=== PATIENT | female | born 1995 | race Caucasian/White ===

== ENCOUNTER 2021-09-21 13:33 | Outpatient (CLI) | payer MEDICAID, SELFPAY | END 2021-09-21 13:34 | disposition home or self-care (01) | LOC: LKVREF 13:35 | PROVIDERS: Visit Provider Physician Assistant Medical | DX: A69.23 Arthritis due to Lyme disease (principal); B97.89 Other viral agents as the cause of diseases classified elsewhere | CPT/HCPCS: 86618 ==

== ENCOUNTER 2021-10-13 17:24 | Emergency (ER) | payer MEDICAID, SELFPAY ==
[2021-10-13 17:48] VITALS: BP 102/69; PULSE 82; RESP 16; TEMP 37.5; O2SAT 100; BMI 31.5
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
[2021-10-13] MEDS: 0.9 % SODIUM CHLORIDE 1000 ml 1,000 ML IV (18:25)
[2021-10-13 18:30] VITALS: BP 95/64; PULSE 59; RESP 18; O2SAT 99
--- NOTE | 2021-10-13 18:33 | ED.NURSE ---
Pt refusing COVID swab. aware and okay with cancelling order.
[2021-10-13] MEDS: FAMOTIDINE 20 MG TABLET PO (18:37)
[2021-10-13] MEDS: ACETAMINOPHEN 500 MG TABLET 1000 MG PO (18:37)
[2021-10-13 18:38] LABS: Basophils Absolute Auto 0.01 K/uL (0.00-0.30); Basophils Percent Auto 0.2 % (0.0-3.0); Eosinophils Absolute Auto 0.07 K/uL (0.00-0.50); Eosinophils Percent Auto 1.4 % (0.0-7.0); Hematocrit 34.2 % (33.0-51.0); Hemoglobin* 11.9 gm/dL (12.0-16.0); Lymphocytes Percent Auto 37.5 % (20-44); Mean Corpuscular HGB Conc 35 gm/dL (32-36); Mean Corpuscular Hemoglobin 30 pg (26-34); Mean Corpuscular Volume 86 fL (80-100); Monocytes Percent Auto 7.9 % (0.0-11.0); Neutrophils Absolute Auto 2.68 K/uL (1.7-7.0); Platelet Count* 237 K/uL (140-440); RDW Coefficient of Variation % 12.3 % (11.5-15.5); Red Blood Count 3.98 m/uL (4.00-5.20); White Blood Count* 5.06 K/uL (4.50-11.00)
[2021-10-13 18:50] LABS: Slide Review Reflex No
[2021-10-13 18:52] LABS: Albumin* 4.2 g/dL (3.3-5.0); Chloride* 106 mmol/L (96-114)
[2021-10-13 18:53] LABS: Potassium* 3.7 mmol/L (3.6-5.1); Sodium* 137 mmol/L (135-149)
[2021-10-13 18:55] LABS: Alkaline Phosphatase* 47 U/L (40-150); Aspartate Amino Transferase* 15 U/L (12-35); Bilirubin Total* 0.1 mg/dL (0.1-1.5); Carbon Dioxide* 25 mmol/L (20-32); Creatinine* 0.6 mg/dL (0.5-1.5); Est. Creatinine Clearance* 135.35; Estimated Glomerular Filt Rate 128 ml/min; Total Protein* 7.4 g/dL (6.0-8.3)
[2021-10-13 18:56] LABS: Alanine Aminotransferase* 13 U/L (4-35); Blood Urea Nitrogen* 10 mg/dL (5-24); Calcium* 8.9 mg/dL (8.4-10.6); Glucose* 89 mg/dL (60-115); Lipase* 88 U/L (23-300)
[2021-10-13 18:58] LABS: C Reactive Protein* 1.1 mg/dL (0.5-1.0)
[2021-10-13 19:00] VITALS: BP 97/54; PULSE 62; RESP 18; O2SAT 100
--- NOTE | 2021-10-13 19:14 | ED.NURSE ---
Pt now okay with COVID swab. Swabbed and sent to lab.
[2021-10-13 19:30] VITALS: BP 100/64; PULSE 57; RESP 18; O2SAT 100
[2021-10-13 20:00] VITALS: BP 100/64; PULSE 61; RESP 18; O2SAT 99
[2021-10-13 20:07] LABS: SARS PCR* Negative SARS-CoV-2 (Negative)
== END 2021-10-13 20:10 | disposition home or self-care (01) ==
PROVIDERS: Emergency Provider Student in an Organized Health Care Education/Training Program
DX: R53.1 Weakness (principal); Z3A.01 Less than 8 weeks gestation of pregnancy
CPT/HCPCS: 36415; 80053; 83690; 85025; 86140; 87635; 99283; A9270; J7030

== ENCOUNTER 2021-10-20 13:53 | Outpatient (CLI) | payer MEDICAID, SELFPAY ==
--- NOTE | 2021-10-20 14:00 | CRLHL7_ITS ---
For Patients: As a result of the Century Cures Act, medical imaging exams and procedure reports are released immediately into your electronic medical record. You may view this report before your referring provider. If you have questions, please contact your health care provider. INDICATION: First trimester scan, establish dates. COMPARISON: 09/26/2021 TECHNIQUE: Real-time snell-scale imaging of the pelvis was performed. FINDINGS: Sonographic imaging demonstrates a single living intrauterine gestation. The embryo demonstrates a regular cardiac rate measuring 176 beats per minute. The embryo`s crown-rump length measurement of 1.8 cm corresponds to a gestational age of 8 weeks 2 days with a sonographic due date of 05/30/2022. There is a normal-appearing yolk sac. There are no gross abnormalities noted within the embryo at this early state of development. The gestational sac has a normal appearance. There is no evidence of a perigestational hemorrhage. The amount of fluid within the sac appears appropriate for gestational age. The cervix is closed. The myometrium appears normal. The ovaries are of normal size. A simple left paraovarian cyst is present measuring 2.3 x 1.6 x 2.9 cm. There are no suspicious fluid collections noted in the cul-de-sac. IMPRESSION: Single living intrauterine with sonographic gestational age 8 weeks 2 days and sonographic due date 05/30/2022. Dictated by Low Dos Santos MD @ 10/20/2021 3:05:23 PM (Electronically Signed)
== END 2021-10-20 13:54 | disposition home or self-care (01) ==
LOC: US 13:54
PROVIDERS: Visit Provider Advanced Practice Midwife
DX: Z34.91 Encounter for supervision of normal pregnancy, unspecified, first trimester (principal); Z3A.08 8 weeks gestation of pregnancy
CPT/HCPCS: 76817

== ENCOUNTER 2021-11-23 13:47 | Outpatient (CLI) | payer MEDICAID, SELFPAY ==
--- NOTE | 2021-11-23 14:00 | CRLHL7_ITS ---
For Patients: As a result of the Century Cures Act, medical imaging exams and procedure reports are released immediately into your electronic medical record. You may view this report before your referring provider. If you have questions, please contact your health care provider. INDICATION: Right calf pain. . COMPARISON: None available. FINDINGS: Ultrasound of the venous drainage of the right lower extremity shows no evidence of deep venous thrombosis. There is normal antegrade flow from the posterior tibial and popliteal veins superiorly through the common femoral vein. There is normal augmentation and compressibility of these veins. The left common femoral vein is widely patent. IMPRESSION: No evidence of deep venous thrombosis on ultrasound examination of the right lower extremity. Dictated by Jordan Snyder MD @ 11/23/2021 2:46:03 PM (Electronically Signed)
== END 2021-11-23 13:48 | disposition home or self-care (01) ==
LOC: US 13:47
PROVIDERS: Visit Provider Physician Assistant
DX: O26.899 Other specified pregnancy related conditions, unspecified trimester (principal); M79.604 Pain in right leg
CPT/HCPCS: 93971

== ENCOUNTER 2021-12-09 11:34 | Emergency (ER) | payer MEDICAID, SELFPAY ==
[2021-12-09 11:42] VITALS: BP 111/67; PULSE 78; RESP 20; TEMP 36.7; O2SAT 99; BMI 31.5
[2021-12-09 12:17] LABS: Basophils Absolute Auto 0.01 K/uL (0.00-0.30); Basophils Percent Auto 0.2 % (0.0-3.0); Eosinophils Absolute Auto 0.03 K/uL (0.00-0.50); Eosinophils Percent Auto 0.5 % (0.0-7.0); Hematocrit 32.8 % (33.0-51.0); Hemoglobin* 11.1 gm/dL (12.0-16.0); Immature Granulocytes Abs Auto 0.01 K/uL (0.00-0.30); Lymphocytes Absolute Auto 1.66 K/uL (0.90-2.90); Lymphocytes Percent Auto 29.2 % (20-44); Mean Corpuscular HGB Conc 34 gm/dL (32-36); Mean Corpuscular Hemoglobin 30 pg (26-34); Mean Corpuscular Volume 89 fL (80-100); Neutrophils Absolute Auto 3.75 K/uL (1.7-7.0); Neutrophils Percent Auto 65.9 % (42.0-72.0); Platelet Count* 196 K/uL (140-440); RDW Coefficient of Variation % 13.1 % (11.5-15.5); Red Blood Count 3.68 m/uL (4.00-5.20); White Blood Count* 5.69 K/uL (4.50-11.00)
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
[2021-12-09 12:20] LABS: Slide Review Reflex No
[2021-12-09 12:32] LABS: Albumin* 3.7 g/dL (3.3-5.0); Chloride* 106 mmol/L (96-114)
[2021-12-09 12:33] LABS: Potassium* 3.6 mmol/L (3.6-5.1); Sodium* 136 mmol/L (135-149)
[2021-12-09 12:35] LABS: Carbon Dioxide* 23 mmol/L (20-32); Creatinine* 0.5 mg/dL (0.5-1.5); Est. Creatinine Clearance* 161.02; Estimated Glomerular Filt Rate 133 ml/min
[2021-12-09 12:36] LABS: Appearance Urine Clear (Clear); Bilirubin Urine Negative (Negative); Blood Urine Negative (Negative); Color Urine Yellow (Yellow); Glucose Urine Negative (Negative); Ketones Urine Negative (Negative); Leukocyte Esterase Urine Negative (Negative); Nitrite Urine Negative (Negative); Protein Urine Negative (Negative); Specific Gravity Urine 1.015 (1.000-1.030); Urobilinogen Urine 0.2 (0.2-1.0); pH Urine 8.5 (5.0-8.5)
[2021-12-09 12:36] LABS: Alanine Aminotransferase* 11 U/L (4-35); Alkaline Phosphatase* 49 U/L (40-150); Aspartate Amino Transferase* 16 U/L (12-35); Bilirubin Total* 0.3 mg/dL (0.1-1.5); Blood Urea Nitrogen* 5 mg/dL (5-24); Calcium* 8.5 mg/dL (8.4-10.6); Glucose* 102 mg/dL (60-115); Lipase* 50 U/L (23-300); Total Protein* 6.6 g/dL (6.0-8.3)
[2021-12-09 12:44] LABS: Trichomonas No Trichomonas Seen (None Seen); Yeast No Yeast Seen (None Seen)
[2021-12-09 12:45] LABS: Clue Cells No Clue Cells Seen (None Seen)
[2021-12-09 12:54] LABS: RBC Urine 0-2 (0-2); Squamous Epithelial Cell Urine Few (None-Few); WBC Urine 0-2 (0-5)
[2021-12-09] MEDS: METOCLOPRAMIDE 10 MG TABLET PO (12:54)
[2021-12-09] MEDS: ACETAMINOPHEN 500 MG TABLET 1000 MG PO (12:54)
[2021-12-09 13:00] VITALS: BP 103/61; PULSE 79; RESP 16; O2SAT 98
[2021-12-09 13:07] LABS: SARS PCR* Negative SARS-CoV-2 (Negative)
== END 2021-12-09 13:30 | disposition home or self-care (01) ==
PROVIDERS: Emergency Provider Family Medicine
DX: B34.9 Viral infection, unspecified (principal); Z3A.15 15 weeks gestation of pregnancy; R10.9 Unspecified abdominal pain
CPT/HCPCS: 36415; 80053; 81001; 83690; 85025; 87210; 87635; 93005; 99283; 99284; A9270

== ENCOUNTER 2021-12-27 23:35 | Emergency (ER) | payer MEDICAID, SELFPAY ==
[2021-12-27 23:49] VITALS: BP 122/79; PULSE 78; RESP 18; TEMP 36.7; O2SAT 97; BMI 31.5
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
--- NOTE | 2021-12-28 00:58 | PC.NURSE ---
Nurse was called down to see patient after concerns of possible miscarriage/ placenta abruption. Patient states that her older child jumped onto her abdomen early yesterday morning. After that, she heard a pop in her left lower abdomen, and she began leaking clear almost chemical smelling fluid. She has had pain in her left lower abdomen, uterine cramping, and low back pain that extends to her tailbone all day. She mentioned she has concerns that her placenta is tearing away. Nurse inquired more about history. 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 She has been sitting in the passenger seat and reaching back to tend to her older child in the back seat. She stated that she was also super gassy yesterday when nurse inquired about last bowel movement. She did have a bowel movement early yesterday. She did have intercourse the night before, too. Nurse assessed FHR to be in the 150's via doppler. Nurse educated that patient's symptoms could be related these recent events. However, nurse recommended patient to make an OB appointment to be evaluated for further OB complications.
[2021-12-28 01:17] LABS: Appearance Urine Clear (Clear); Bilirubin Urine Negative (Negative); Blood Urine Trace-intact (Negative); Color Urine Yellow (Yellow); Glucose Urine Negative (Negative); Ketones Urine Negative (Negative); Leukocyte Esterase Urine Negative (Negative); Nitrite Urine Negative (Negative); Protein Urine Negative (Negative); Specific Gravity Urine 1.025 (1.000-1.030); Urobilinogen Urine 0.2 (0.2-1.0)
[2021-12-28 01:34] LABS: Bacteria Urine Few; Squamous Epithelial Cell Urine Moderate (None-Few); WBC Urine 0-2 (0-5)
[2021-12-28 01:50] VITALS: BP 119/78; PULSE 79; RESP 18; TEMP 36.7; O2SAT 97
[2021-12-28 01:52] VITALS: BP 119/78; PULSE 79; RESP 18; TEMP 36.7
== END 2021-12-28 01:52 | disposition home or self-care (01) ==
PROVIDERS: Emergency Provider Family Medicine
DX: O26.892 Other specified pregnancy related conditions, second trimester (principal); Z3A.17 17 weeks gestation of pregnancy
CPT/HCPCS: 81001; 87086; 99283

== ENCOUNTER 2022-01-15 12:41 | Outpatient (CLI) | payer MEDICAID, SELFPAY ==
--- NOTE | 2022-01-15 13:00 | CRLHL7_ITS ---
For Patients: As a result of the Century Cures Act, medical imaging exams and procedure reports are released immediately into your electronic medical record. You may view this report before your referring provider. If you have questions, please contact your health care provider. INDICATION: Evaluate anatomy. COMPARISON: 10/20/2021 TECHNIQUE: Real time snell scale imaging of the fetus was performed as well as color Doppler analysis of the umbilical vessels. FINDINGS: Sonographic imaging demonstrates a single living intrauterine gestation. Fetus demonstrates a regular cardiac rate of 139 beats per minute. Fetus has a breech position. The placenta lies posteriorly without evidence of placenta previa. The edge of the placenta is located 3.6 cm from the internal cervical os. Amniotic fluid volume appears normal. Single deepest vertical pocket: 4.4 cm. The cervix is closed and measures 5.0 cm in length. The composite ultrasound gestational age is calculated at 20 weeks 4 days with an estimated sonographic due date of 05/31/2022. The estimated weight is 378 grams which lies at the 34th %. The following biometric measurements were obtained: Biparietal diameter: 4.8 cm/20 weeks 3 days 26th% Head circumference: 18.0 cm/20 weeks 3 days 19th% Abdominal circumference: 16.4 cm/21 weeks 3 day 59th% Femur length: 3.2 cm/20 weeks 1 day 14th% The HC/AC ratio measures: 1.10 range (1.07-1.25) On anatomic survey, there is a normal appearance of the cerebral ventricles, cavum septi pellucidi, cisterna magna and cerebellum. The nose, lips, and facial profile appear normal. The cervical, thoracic and lumbar spine are well visualized and appear normal. There is a normal four-chamber heart view and the left and right ventricular outflow tracts appear normal. The diaphragm and stomach appear normal. The kidneys and bladder also appear normal. There is a normal three-vessel cord and there is an eccentric cord insertion site. The four extremities appear normal. IMPRESSION: Normal OB ultrasound exam with concordance of clinical and sonographic dating. No intrinsic abnormalities noted on anatomic survey. Dictated by Low Dos Santos MD @ 01/16/2022 9:37:09 AM (Electronically Signed)
== END 2022-01-15 12:42 | disposition home or self-care (01) ==
LOC: US 12:42
PROVIDERS: Visit Provider Advanced Practice Midwife
DX: Z34.92 Encounter for supervision of normal pregnancy, unspecified, second trimester (principal); Z3A.20 20 weeks gestation of pregnancy
CPT/HCPCS: 76805

== ENCOUNTER 2022-05-07 16:25 | Outpatient (CLI) | payer BC, MEDICAID, SELFPAY ==
[2022-05-08 12:39] LABS: Strep B DNA Probe NEGATIVE (Negative)
[2022-05-08 13:06] LABS: Strep B Pen/Amox Allergy No
== END 2022-05-07 16:26 | disposition home or self-care (01) ==
LOC: NFLDREF 16:25
PROVIDERS: Visit Provider Advanced Practice Midwife
DX: Z34.93 Encounter for supervision of normal pregnancy, unspecified, third trimester (principal); Z3A.36 36 weeks gestation of pregnancy
CPT/HCPCS: 87081; 87653

== ENCOUNTER 2022-05-25 02:22 | Inpatient (IN) | payer BC, MEDICAID, SELFPAY ==
[2022-05-25] VITALS (35 sets, daily range): BP systolic 106–133; BP diastolic 58–82; PULSE 56–83; RESP 16; TEMP 36.4–36.6; O2SAT 96–100; BMI 38.7
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
[2022-05-25 03:34] LABS: SARS PCR* Negative SARS-CoV-2 (Negative)
--- NOTE | 2022-05-25 09:01 | P.OBPN_ITS ---
Subjective Date Seen: 05/25/22 Narrative: Lucy is a 26 yo at 38 6/7 weeks gestation per our LMP, patient reports her CHIARA is 06/01/21, putting her at 39 0/7 weeks gestation. [place] was admitted this morning after making cervical change in triage, she has since stalled at 4.5 cm. Contractions have spaced out and are irregular. Patient has been having contractions on and off since earlier this week. She was evaluated in [place] the discharge home after minimal change in triage. After some monitoring here, she had a prolonged deceleration and has had some late decelerations following contractions. heart rate has since been overall reassuring. Patient is fatigued as she she has not had much sleep in the last few days. Objective Exam: Constitutional: Alert and oriented x3, mild distress, coping well? Vital signs stable, see nurse documentation?? Abdomen: gravid, contractions palpate mild with contractions and soft between? 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 Plan Plan: ASSESSMENT:? 26 at 39 0/7 weeks gestation? complicated by:? Labor type: Spontaneous, early labor? Category 1 FHR pattern.?Intermittent Cat II Labor complicated by: prodromal labor and Cat II tracing intermittently? GBS negative? ? PLAN:? 1. Routine intrapartum cares as ordered. Recommended Augmentation due to FHR tracing. She is agreeable. She would like to try to rest some and do some position changes to assist with engagement of fetus. Discussed AROM vs Pitocin. Last report, fetus was ballotable. I would not recommend AROM if this is still the case. She reports understanding. 2. Monitoring per policy, continuous due to FHR changes. Could consider intermittent with reassuring tracing during labor.? 3. Planning unmedicated . Desires water . Consent signed. Hep C negative. Candidate for analgesia of choice.?? 4. Patient encouraged to reposition and ambulate to promote physiologic labor and .? 5. Anticipate ?
[2022-05-25] MEDS: LACTATED RINGERS 1000 ML 1,000 ML 125 ML IV ×2 (09:04→17:16)
[2022-05-25 09:31] LABS: Basophils Absolute Auto 0.02 K/uL (0.00-0.30); Basophils Percent Auto 0.3 % (0.0-3.0); Eosinophils Absolute Auto 0.09 K/uL (0.00-0.50); Eosinophils Percent Auto 1.2 % (0.0-7.0); Hematocrit 35.6 % (33.0-51.0); Hemoglobin* 11.6 gm/dL (12.0-16.0); Immature Granulocytes Abs Auto 0.06 K/uL (0.00-0.30); Immature Granulocytes Pct Auto 0.8 %; Lymphocytes Percent Auto 35.8 % (20-44); Mean Corpuscular HGB Conc 33 gm/dL (32-36); Mean Corpuscular Hemoglobin 28 pg (26-34); Mean Corpuscular Volume 87 fL (80-100); Monocytes Percent Auto 4.9 % (0.0-11.0); Neutrophils Absolute Auto 4.47 K/uL (1.7-7.0); Platelet Count* 216 K/uL (140-440); RDW Coefficient of Variation % 13.8 % (11.5-15.5); Red Blood Count 4.11 m/uL (4.00-5.20); White Blood Count* 7.82 K/uL (4.50-11.00)
[2022-05-25 09:32] LABS: Slide Review Reflex No
[2022-05-25] MEDS: SERTRALINE 50 MG TABLET PO (13:52)
[2022-05-25] MEDS: OXYTOCIN 30 unit/500 ML in NS 30 UNIT/500 ML BAG IVPB (14:34)
--- NOTE | 2022-05-25 19:41 | W.PM.OBVAGDE ---
OB Procedure Vag Delivery Mother Details Mother Details: The patient is a 26 year-old, 3, Para 1, admitted on 05/25/22 at 39.0 weeks gestation for labor. : 3 Para: 2 Weeks Gestation: 39 Admission Date: 05/25/22 Additional Details Amniotic Membrane Status: SROM Amniotic Membrane Rupture Date: 05/25/22 Amniotic Membrane Rupture Time: 18:15 Amniotic Membrane Fluid Description: Meconium Stained Analgesia/Anesthesia Type: None Waterbirth: Yes Pitcoin: Yes Intrapartal Events: Labor Augmentation Delivery augmentation: pitocin Labor Onset: 17:30 Complete: 18:40 Pushin:40 Heart: heart tones during second stage had wandering baseline ranging 130-150's, + Accels, +variable decels with moderate variability. Very difficult to trace due to maternal positioning and discomfort. Delivery Details Delivery Date: 05/25/22 Delivery Time: 19:49 Route of delivery: Gender: Female Infant Viability: Alive; Heart Rate Present Position at Delivery: OA Delivery Details: Delivered over intact perineum via spontaneous vaginal delivery, waterbirth. Infant was placed on maternal abdomen.? Cord was clamped and cut after a 1-2 minute delay. Brought to the warmer for further evaluation.? weight pending. 1 Minute Interval Total Score: 8 5 Minute Interval Total Score: 8 Additional Details Shoulder Dystocia: No Placenta Delivery Time: 18:58 Placental Delivery Description: Spontaneous Procedure Done: Global Blood Loss: 50 Laceration: None Blood Loss Measurement Type: QBL Bakri Used: No Sponge/Need Count Correct: Yes Cord Vessel Description: 3 Vessels Event Summary Status: Mother and were stable after delivery.
[2022-05-26 01:44] VITALS: BP 122/79; PULSE 52; RESP 16; TEMP 36.6; O2SAT 97
[2022-05-26 05:45] VITALS: BP 117/81; PULSE 68; RESP 16; TEMP 36.6; O2SAT 96
[2022-05-26] MEDS: ACETAMINOPHEN 500 MG TABLET 1000 MG PO ×2 (05:57→16:35)
--- NOTE | 2022-05-26 09:13 | PM.OBPNVD1 ---
OB - PN: Obj Exam Physical Exam: Vital signs: Temp Pulse Resp BP Pulse Ox O2 Del Method 97.9 F 68 16 117/81 96 05/26/22 05:45 05/26/22 05:45 05/26/22 05:45 05/26/22 05:45 05/26/22 05:45 05/26/22 05:45 OB - PN: Obj Data Labs Labs: Laboratory Results - last 24 hr 05/25/22 05/25/22 09:20 09:20 WBC 7.82 RBC 4.11 Hgb 11.6 L Hct 35.6 MCV 87 MCH 28 MCHC 33 RDW Coeff of [place] 13.8 Plt Count 216 Neut % (Auto) 57.0 Lymph % (Auto) 35.8 [place] % (Auto) 4.9 Eos % (Auto) 1.2 Baso % (Auto) 0.3 Neut # (Auto) 4.47 Lymph # (Auto) 2.80 [place] # (Auto) 0.40 Eos # (Auto) 0.09 Baso # (Auto) 0.02 Blood Type O Positive Antibody Screen NEGATIVE OB - PN: A/P Vaginal Delivery Assessment and Plan (1) Uterine contractions: Status: Acute (2) Depression with anxiety: Problem details: Previously took fetzima and vyvanse and did therapy Status: Acute
[2022-05-26 09:18] VITALS: BP 125/85; PULSE 60; RESP 16; TEMP 36.4; O2SAT 98
[2022-05-26] MEDS: IBUPROFEN 600 MG TABLET PO ×2 (09:27→18:18)
[2022-05-26] MEDS: DOCUSATE SODIUM 100 MG CAPSULE PO (09:27)
[2022-05-26 13:23] VITALS: BP 111/70; PULSE 85; RESP 16; TEMP 36.8; O2SAT 96
[2022-05-26] MEDS: SERTRALINE 50 MG TABLET PO (13:27)
--- NOTE | 2022-05-26 16:23 | PM.OBDSVD1 ---
DS: Providers Provider Date Seen: 05/26/22 Date of admission: 05/25/22 02:22 Primary care physician: Not a Local Provider Admitting Clinician: Bernie Cunningham CNM Attending Physician on discharge: Danielle Reed CNM Date of Discharge: 05/26/22 DS: Diagnosis Discharge Diagnosis (1) care and examination immediately after delivery: Status: Acute (2) Lactating mother: Status: Acute Exam Narrative: Exam Narrative: GENERAL APPEARANCE:? normal affect, alert, no distress? MOOD:? appropriate? CHEST:? clear to auscultation and percussion? HEART:? regular rate and rhythm? ABDOMEN:? soft, non-tender the uterine fundus is 1 cm Below Umbilicus, Midline and is appropriate for the stage of recovery. ? PERINEUM:? mild edema of the perineum, there is no tear. EXTREMITIES:? normal and no edema? Patient has no complaints? No active bleeding?? Doing well? She is requesting discharge home.? Const: Vital Signs, click to edit/add: Vital Signs - 24 hr 05/25/22 18:59 05/25/22 19:16 05/25/22 19:31 Temperature Pulse Rate 64 81 58 L Pulse Rate [Pulse Oximeter] Respiratory Rate Blood Pressure 120/76 132/62 129/66 Blood Pressure [Le ft Arm] [facility] 19:47 05/25/22 20:01 05/25/22 20:16 Temperature Pulse Rate 68 83 64 Pulse Rate [Pulse Oximeter] Respiratory Rate Blood Pressure 127/66 114/66 106/58 L Blood Pressure [Le ft Arm] [facility] 20:31 05/25/22 20:46 05/25/22 21:01 Temperature Pulse Rate 70 68 71 Pulse Rate [Pulse Oximeter] Respiratory Rate Blood Pressure 113/68 107/60 109/60 Blood Pressure [Le ft Arm] [facility] 19:00 05/25/22 19:15 05/25/22 19:30 Temperature Pulse Rate Pulse Rate [Pulse Oximeter] Respiratory Rate 16 16 16 Blood Pressure Blood Pressure [Le ft Arm] Pulse [facility]xim[facility] 05[facility] 19:45 05/25/22 20:00 05/25/22 20:15 Temperature 97.6 F Pulse Rate Pulse Rate [Pulse Oximeter] Respiratory Rate 16 16 16 Blood Pressure Blood Pressure [Le ft Arm] Pulse Oximetry Oxygen Delivery Me [facility] 05/25/22 20:30 05/25/22 20:45 05/25/22 21:00 Temperature Pulse Rate Pulse Rate [Pulse Oximeter] Respiratory Rate 16 16 16 Blood Pressure Blood Pressure [Le ft Arm] Pulse Oximetry Oxygen Delivery Me [facility] 05/26/22 01:44 05/26/22 05:45 05/26/22 09:18 Temperature 97.9 F 97.9 F 97.6 F Pulse Rate Pulse Rate [Pulse Oximeter] 52 L 68 60 Respiratory Rate 16 16 16 Blood Pressure Blood Pressure [Le ft Arm] 122/79 117/81 125/85 Pulse Oximetry 97 96 98 Oxygen Delivery Me [facility] Room Air Room Air Room Air 05/26/22 13:23 Temperature 98.3 F Pulse Rate Pulse Rate [Pulse Oximeter] 85 Respiratory Rate 16 Blood Pressure Blood Pressure [Le ft Arm] 111/70 Pulse Oximetry 96 Oxygen Delivery Me thod Room Air Documenting provider has reviewed patient's vital signs: yes OB - DS: Summary Hospital Course Hospital Course: Lucy is a 26 year old G 3 now P 2 at 39.0 weeks gestation that was admitted to the Center on 05/25/22 for induction of labor. She had an uncomplicated vaginal delivery. She delivered a viable female . She is breast feeding. the patient has done well. the patient has done well.? Her pain is well controlled with current medications.? She has no new complaints.? Vitals have been stable. She has remained afebrile. She is voiding without difficulty. She is passing gas and has not yet had a bowel movement. She is ambulating and denies any dizziness. She is planning her partner to get a vasectomy for control.???She is requesting discharge due to the needing transfer for medical care today. Peripartum Data delivery method: Vaginal Laceration description: None complications: none Infant Gender: Female Discharge Plan: transfer to [facility] Status at Discharge Functional status at discharge: independent ambulation Overall status at discharge: patient is progressing back to baseline Time Spent with Patient Time attestation: Total time spent providing and/or coordinating discharge services: Time spent: Less than 30 minutes Discharge Plan Discharge Disposition: Home, Self-Care Date of Admission: 05/25/22 02:22 Attending Provider on Discharge: Danielle Reed Primary Care Provider: Provider,Not a Local Condition: Stable Anticipated Discharge Date/Time: 05/26/22 17:00 Discharge Medications: New docusate sodium 100 mg Capsule 100 mg PO DAILY Qty: 90 0RF Rx Instructions: Take 1-2 tables daily as needed. ibuprofen 600 mg Tablet 600 mg PO Q6H PRNQty: 60 0RF Continued prenat.vits,patti,[id number] Tablet 1 tab PO QDAY sertraline 50 mg tablet 50 mg PO QAM Discharge Orders: Discharge Order (Routine); Ordered 05/26/22 Ordered By: Danielle Reed Additional Instructions: Discharge instructions were reviewed with the patient including signs and symptoms of infection and home going medications.? Lifting Restrictions: 10 pounds for 6? weeks? ?? Do not drive while taking narcotic pain meds.? Off Work or School for 6 weeks.? ?? Symptoms to report to doctor:? -Bleeding that saturates more than one pad per hour? -Passing clots larger than the size of a golf ball? -Pain not relieved by prescribed medication? -Fever above 100.4 degrees Fahrenheit? -A foul vaginal odor? -Difficulty in emotions, mood and functions? -Thoughts of hurting yourself and/or ? -Painful, reddened area in your breast? -Any drainage, redness or tenderness in your IV/epidural site? -Severe headache that doesn't improve after taking medications? -Changes in vision, including temporary loss of vision, blurred vision, and/or light sensitivity? -Upper abdominal pain (usually under ribs on the right side)? -Decrease in urination or painful, frequent urinating? -Chest pain? -Shortness of breath? -Tenderness or pain with redness and/swelling in the calf(s) of your leg? ?? Follow Up in clinic in 2 and 6 weeks.? ?? consultation services are available to all mothers and babies for the first year after delivery.? To make an appointment, please call [phone].? Activity Level: Activity as Tolerated Discharge Diet: Regular Follow Up Appointments: Provider,Not a Local [Primary Care Provider] - [facility] [Provider Group] Forms: MyHealth Info Instructions
[2022-05-26 16:29] VITALS: BP 117/74; PULSE 70; RESP 16; TEMP 36.8; O2SAT 97
== END 2022-05-26 18:45 | disposition home or self-care (01) | DRG 560 ==
LOC: OB OUT 02:22 → OB 02:22
PROVIDERS: Advanced Practice Midwife; Admitting Provider Advanced Practice Midwife; Visit Provider Advanced Practice Midwife
DX: O80 Encounter for full-term uncomplicated delivery (principal); F41.8 Other specified anxiety disorders; Z3A.39 39 weeks gestation of pregnancy; Z37.0 Single live birth; O99.344 Other mental disorders complicating childbirth
CPT/HCPCS: 36415; 85025; 86850; 86900; 86901; 87426; 87635; 99213; A9270; J7120

== ENCOUNTER 2024-04-03 12:35 | Outpatient (CLI) | payer BC, SELFPAY | END 2024-04-03 12:36 | disposition home or self-care (01) | PROVIDERS: PCP Family Medicine; Visit Provider Family Medicine | DX: R20.0 Anesthesia of skin (principal); R20.2 Paresthesia of skin | CPT/HCPCS: 80048; 84443; 85025; 86618 ==

== ENCOUNTER 2024-05-25 14:59 | Outpatient (CLI) | payer BC, SELFPAY | END 2024-05-25 15:00 | disposition home or self-care (01) | LOC: US 15:02 | PROVIDERS: PCP Family Medicine; Visit Provider Advanced Practice Midwife | DX: N92.6 Irregular menstruation, unspecified (principal); T83.32XA Displacement of intrauterine contraceptive device, initial encounter | CPT/HCPCS: 76830; 76856 ==

== ENCOUNTER 2025-02-10 11:09 | Outpatient (CLI) | payer BC, SELFPAY | END 2025-02-10 11:10 | disposition home or self-care (01) | LOC: INJ CL 11:10 | PROVIDERS: PCP Family Medicine; Visit Provider Nurse Anesthetist, Certified Registered | DX: M54.16 Radiculopathy, lumbar region (principal); M51.26 Other intervertebral disc displacement, lumbar region; G89.29 Other chronic pain | CPT/HCPCS: 64483; J0665; Q9966 ==